=== PATIENT | female | born 1975 | race American Indian/Alaskan Native ===

== ENCOUNTER 2021-02-01 10:32 | Emergency (ER) | payer SELFPAY ==
[2021-02-01 11:26] VITALS: BP 180/113
[2021-02-01] MEDS ORDERED: NEOMY 3.5 MG/POLY B 10,000 UNITS/HC 10 MG/ML (OTIC) SUSP 10 ML AU ONE (12:36)
--- NOTE | 2021-02-01 12:43 | Emergency Department Report ---
ED ENT HPI - General Chief complaint: Earache Stated complaint: EAR PAIN Time Seen by Provider: 02/01/21 12:35 Source: patient Mode of arrival: Ambulatory Limitations: No Limitations - History of Present Illness Initial comments: 45-year-old -[place] female presents to the emergency room for left ear pain with drainage and swelling of her ear canal. Patient states that she placed her ear buds in her ear that was dirty unaware into herself. Started having ear pain 1 month ago and is progressively gotten worse. Patient also reports that she has been out of her blood pressure medication. Currently takes lisinopril 10 mg and amlodipine 10 mg. Patient has not been seen by primary care provider in a while. Patient denies any chest pain no shortness of breath no headache no nausea no vomiting. MD complaint: ear pain Location: L ear Severity: severe Quality: stabbing, aching, sharp Consistency: constant Improves with: none Worsens with: movement ( of ear) Associated Symptoms: hearing loss, discharge from ear. denies: fever, cough, gum swelling, toothache, pain with swallowing, sore throat - Related Data Previous Rx's Medication Instructions Recorded Last Taken Type amLODIPine 10 mg PO DAILY #60 tab 02/01/21 Unknown Rx lisinopriL [Lisinopril] 10 mg PO QDAY #60 tablet 02/01/21 Unknown Rx Allergies Allergy/AdvReac Type Severity Reaction Status Date / Time No Known Allergies Allergy Verified 02/01/21 12:42 ED Dental HPI - General Chief complaint: Earache Stated complaint: EAR PAIN Time Seen by Provider: 02/01/21 12:35 Source: patient Mode of arrival: Ambulatory Limitations: No Limitations - Related Data Previous Rx's Medication Instructions Recorded Last Taken Type amLODIPine 10 mg PO DAILY #60 tab 02/01/21 Unknown Rx lisinopriL [Lisinopril] 10 mg PO QDAY #60 tablet 02/01/21 Unknown Rx Allergies Allergy/AdvReac Type Severity Reaction Status Date / Time No Known Allergies Allergy Verified 02/01/21 12:42 ED Review of Systems ROS: Stated complaint: EAR PAIN Other details as noted in HPI Comment: All other systems reviewed and negative ED Past Medical Hx - Past Medical History Previous Medical History?: Yes Hx Hypertension: Yes - Surgical History Past Surgical History?: Yes Additional Surgical History: x 2, Partial hysterectomy - Social History Smoking Status: Current Every Day Smoker Substance Use Type: Alcohol - Medications Home Medications: Home Medications Medication Instructions Recorded Confirmed Last Taken Type amLODIPine 10 mg PO DAILY #60 tab 02/01/21 Unknown Rx lisinopriL [Lisinopril] 10 mg PO QDAY #60 tablet 02/01/21 Unknown Rx ED Physical Exam - General Limitations: No Limitations General appearance: alert, in no apparent distress - Head Head exam: Present: atraumatic, normocephalic - Eye Eye exam: Present: normal appearance - Expanded ENT Exam Expanded TM/Canal exam: Canal Discharge: Left TM, Canal Tenderness: Left TM - Neck Neck exam: Present: normal inspection, full ROM - Respiratory Respiratory exam: Absent: accessory muscle use - Cardiovascular Cardiovascular Exam: Present: regular rate - Back Exam Back exam: Present: normal inspection - Neurological Exam Neurological exam: Present: alert, oriented X3 - Psychiatric Psychiatric exam: Present: normal affect, normal mood - Skin Skin exam: Present: warm, dry, intact, normal color. Absent: rash ED Course Vital Signs 02/01/21 11:23 Temperature 99.6 F Pulse Rate 78 Respiratory 20 Rate Blood Pressure 180/113 O2 Sat by Pulse 97 Oximetry ED Medical Decision Making - Medical Decision Making 45-year-old -[place] female presents to the emergency room for left ear pain with drainage and swelling of her ear canal. Patient states that she placed her ear buds in her ear that was dirty unaware into herself. Started having ear pain 1 month ago and is progressively gotten worse. Patient also reports that she has been out of her blood pressure medication. Currently takes lisinopril 10 mg and amlodipine 10 mg. Patient has not been seen by primary care provider in a while. Patient denies any chest pain no shortness of breath no headache no nausea no vomiting. Patient will be treated for left external otitis with neomycin/Cortisporin eardrops I will place her ear wick in ear. Medication refill of her lisinopril and amlodipine for [address] Mary Becker as well as [facility]. Patient is aware of the risks that she takes about taking her blood pressure medication she verbalized understanding. Critical care attestation.: If time is entered above; I have spent that time in minutes in the direct care of this critically ill patient, excluding procedure time. ED Disposition Clinical Impression: Uncontrolled stage 2 hypertension Otitis externa Qualifiers: Noninfectious otitis externa type: contact Chronicity: acute Laterality: right Disposition: DC-01 TO HOME OR SELFCARE Is pt being admited?: No Does the pt Need Aspirin: No Condition: Stable Instructions: Ear Drops, Adult, [id number], Hypertension, Adult, [id number], Hypertension (ED) Additional Instructions: Complete antibiotics for your ear as prescribed. Take blood pressure medicine as prescribed. Is very important for you to follow-up with a primary care provider as she increases your risk for cardiovascular disease, stroke, . Prescriptions: amLODIPine 10 mg PO DAILY #60 tab lisinopriL [Lisinopril] 10 mg PO QDAY #60 tablet Referrals: [facility] [Provider Group] - 3-5 Days WILMAN BLACKWELL MD [Staff Physician] - 3-5 Days Forms: Work/School Release Form(ED)
== END 2021-02-01 14:56 | disposition home or self-care (01) ==
LOC: ED 10:32
DX: H60.92 Unspecified otitis externa, left ear (principal); I10 Essential (primary) hypertension; F17.200 Nicotine dependence, unspecified, uncomplicated; Z79.899 Other long term (current) drug therapy; Z90.710 Acquired absence of both cervix and uterus; Z98.890 Other specified postprocedural states
CPT/HCPCS: 99282